=== PATIENT | female | born 1985 | race Caucasian/White ===

== ENCOUNTER 2016-11-23 17:39 | Emergency (ER) | payer OTHER ==
[2016-11-23 20:38] LABS: HEMOGLOBIN 13.8 gm/dl (12.3-15.3); RED BLOOD COUNT 4.41 M/UL (4.00-5.10); WHITE BLOOD COUNT 8.4 K/UL (4.5-11.0)
[2016-11-23 20:56] LABS: BUN/CREATININE RATIO 13 (0-10)
== END 2016-11-24 00:35 | disposition home or self-care (01) ==
LOC: ER1 17:39
PROVIDERS: Student in an Organized Health Care Education/Training Program
DX: R42 Dizziness and giddiness (principal); R11.2 Nausea with vomiting, unspecified
CPT/HCPCS: 36415; 80053; 81001; 82550; 82553; 83874; 84443; 84484; 84703; 85025; 93005; 99284

== ENCOUNTER 2020-11-02 00:04 | Emergency (ER) | payer OTHER ==
[2020-11-02 00:45] LABS: HEMOGLOBIN 12.5 gm/dl (12.3-15.3); RED BLOOD COUNT 3.99 M/UL (4.00-5.10); WHITE BLOOD COUNT 11.8 K/UL (4.5-11.0)
[2020-11-02] MEDS ORDERED: PERCOCET 5/325 T1 EA PO (02:45)
[2020-11-02] MEDS ORDERED: ZOFRAN ODT 4 MG4 MG GT (02:46)
== END 2020-11-02 02:55 | disposition home or self-care (01) ==
LOC: ER1 00:04
PROVIDERS: Family Medicine
DX: R10.9 Unspecified abdominal pain (principal); R11.0 Nausea
CPT/HCPCS: 80053; 81001; 83690; 84703; 85025; 96374; 96375; 99284; J1885; J2270; J2405